=== PATIENT | female | born 1970 | race Caucasian/White ===

== ENCOUNTER → 2017-02-19 | Outpatient (CLI) | payer OTHER | LOC: KOH-I 11:35 | DX: M54.5 Low back pain (principal); M47.896 Other spondylosis, lumbar region; M41.9 Scoliosis, unspecified; M25.78 Osteophyte, vertebrae | CPT/HCPCS: 72070; 72110 ==

== ENCOUNTER 2021-06-20 12:25 | Emergency (ER) | payer BC ==
[2021-06-20 13:31] LABS: HEMOGLOBIN 13.1 gm/dl (12.3-15.3); RED BLOOD COUNT 4.28 M/UL (4.00-5.10); WHITE BLOOD COUNT 12.1 K/UL (4.5-11.0)
[2021-06-20 15:32] LABS: BUN/CREATININE RATIO 16 (0-10)
[2021-06-20] MEDS ORDERED: IBUPROFEN600 MG PO (21:42)
== END 2021-06-20 22:00 | disposition home or self-care (01) ==
LOC: ER1 12:25
PROVIDERS: Nurse Practitioner
DX: R10.31 Right lower quadrant pain (principal); R11.0 Nausea; E11.9 Type 2 diabetes mellitus without complications; I10 Essential (primary) hypertension; Z86.16 Personal history of COVID-19; Z90.49 Acquired absence of other specified parts of digestive tract; Z20.822 Contact with and (suspected) exposure to COVID-19
CPT/HCPCS: 76830; 80053; 81001; 82550; 82553; 83690; 83874; 84484; 85025; 85379; 93005; 99285; J7030; Q9967; U0002